=== PATIENT | male | born 1940 | race Caucasian/White ===

== ENCOUNTER 2017-11-22 06:20 | Emergency (ER) | payer OTHER, BC ==
[~2017-11-22] VITALS: Ht 180.3 cm; Wt 106.6 kg
[2017-11-22 07:11] LABS: BASOPHIL (%) 0.4 % (0-1); EOSINOPHIL (%) 2.9 % (0-5); EOSINOPHIL COUNT 0.3 K/uL (0-0.3); HEMOGLOBIN 13.9 G/DL (12.5-16.6); IMMATURE GRANULOCYTE (%) 0.4 % (0.0-0.7); LYMPHOCYTE (%) 16.5 % (15-42); LYMPHOCYTE COUNT 1.4 K/uL (1.0-2.8); MCH 31.8 PG (29.0-34.0); MCHC 35.6 G/DL (30.0-36.0); MCV 89.2 FL (86-99); MONOCYTE (%) 5.4 % (3-12); MONOCYTE COUNT 0.5 K/uL (0-0.8); NEUTROPHIL (%) 74.4 % (45-76); NEUTROPHIL COUNT 6.3 K/uL (1.8-6.4); PLATELET COUNT 149 K/uL (156-360); RBC DIS.WIDTH-CV 12.4 % (11.8-14.6); RBC DIS.WIDTH-SD 40.7 % (39-53); RED BLOOD COUNT 4.37 M/uL (4.00-5.50); WHITE BLOOD COUNT 8.5 K/uL (4.1-10.2)
[2017-11-22 07:38] LABS: TROP-I INTERPRETATION NEGATIVE; TROPONIN-I 0.02 ng/mL (0.0-0.30)
[2017-11-22 07:45] LABS: CHLORIDE 104 MEQ/L (99-109); CREATININE 1.5 MG/DL (0.6-1.3); GFR ESTIMATE (CALCULATED) 48 mL/min/ (58.99-99999); GLUCOSE 162 mg/dL (70-99); POTASSIUM 3.6 MEQ/L (3.7-5.4); SODIUM 138 MEQ/L (136-147); UREA NITROGEN (BUN) 30 mg/dL (9-23)
[2017-11-22 08:48] LABS: INTER. NORMALIZED RATIO 2.5
[2017-11-22 08:51] LABS: PTT 42.6 SEC (25-37)
[2017-11-22 10:31] LABS: TROP-I INTERPRETATION NEGATIVE; TROPONIN-I 0.05 ng/mL (0.0-0.30)
[2017-11-22] MEDS ORDERED: APRESOLINE25 MG PO (10:49)
[2017-11-22] MEDS ORDERED: LIPITOR40 MG PO (10:50)
[2017-11-22] MEDS ORDERED: BISOPROLOL-HCT1 EACH PO (10:50)
[2017-11-22] MEDS ORDERED: DOXAZOSIN MESYLA4 MG PO (10:50)
[2017-11-22] MEDS ORDERED: FLOMAX0.4 MG PO (10:51)
[2017-11-22] MEDS ORDERED: XARELTO20 MG PO (10:51)
[2017-11-22 15:38] VITALS: BP 188/109
== END 2017-11-22 15:38 | disposition home or self-care (01) ==
LOC: EME → EDBD 06:20 → EME 06:20
PROVIDERS: Emergency Medicine
DX: I48.91 Unspecified atrial fibrillation (principal); I10 Essential (primary) hypertension; Z79.01 Long term (current) use of anticoagulants; F41.9 Anxiety disorder, unspecified; Z53.21 Procedure and treatment not carried out due to patient leaving prior to being seen by health care provider; E78.5 Hyperlipidemia, unspecified; N40.0 Benign prostatic hyperplasia without lower urinary tract symptoms; Z85.9 Personal history of malignant neoplasm, unspecified
CPT/HCPCS: 71045; 80048; 83880; 84484; 85025; 85610; 85730; 93005; 99281; 99285